=== PATIENT | female | born 1995 | race Caucasian/White ===

== ENCOUNTER 2021-01-24 20:59 | Emergency (ER) | payer OTHER, MEDICAID ==
--- NOTE | 2021-01-24 22:22 | EDM.PDOC ---
ED HPI GENERAL MEDICAL PROBLEM - General Chief Complaint: Genitourinary Problem Stated Complaint: BLADDER PAIN/BLOOD Time Seen by Provider: 01/24/21 21:49 Source of Information: Reports: Patient, RN History Limitations: Reports: No Limitations - History of Present Illness INITIAL COMMENTS - FREE TEXT/NARRATIVE: Chief complaint: bladder infection This is a 25 year old female presents to ER for bladder symptoms x 24 hours. has painful, frequent urination. denies fever, chills or back pain. Onset: Today Onset Date: 01/23/21 Duration: Hour(s): (24 hours), Getting Worse Location: Reports: Abdomen Quality: Reports: Burning, Same as Previous Episode, Sharp, Stabbing Severity: Moderate Improves with: Reports: None Worsens with: Reports: None Associated Symptoms: Reports: No Other Symptoms - Related Data Allergies Allergy/AdvReac Type Severity Reaction Status Date / Time Sulfa (Sulfonamide Allergy Rash Verified 01/24/21 21:32 Antibiotics) Home Meds: Home Meds NK [No Known Home Meds] 01/24/21 [History] Past Medical History Cardiovascular History: Reports: Arrhythmia [employer] History: Reports: Musculoskeletal History: Reports: Fracture - Infectious Disease History Infectious Disease History: Reports: Influenza, Novel Coronavirus Social & Family History - Tobacco Use Tobacco Use Status *Q: Never Tobacco User - Living Situation & Occupation Living situation: Reports: with Significant Other (Lives with family, has one child Son age 16 months.), with Family ED ROS GENERAL - Review of Systems Review Of Systems: See Below Constitutional: Reports: Other (painful urination x 24 hours) HEENT: Reports: No Symptoms Respiratory: Reports: No Symptoms Cardiovascular: Reports: No Symptoms Endocrine: Reports: No Symptoms GI/Abdominal: Reports: Abdominal Pain : Reports: Dysuria, Frequency, Pain, Urgency Musculoskeletal: Reports: No Symptoms Skin: Reports: No Symptoms Neurological: Reports: No Symptoms Psychiatric: Reports: No Symptoms Hematologic/Lymphatic: Reports: No Symptoms Immunologic: Reports: No Symptoms ED EXAM, GI/ABD - Physical Exam Exam: See Below Exam Limited By: No Limitations General Appearance: Alert, WD/WN, No Apparent Distress, Other (neat and well groomed. pleasant - no distress) Eyes: Bilateral: Normal Appearance, EOMI Neck: Normal Inspection Respiratory/Chest: No Respiratory Distress, Lungs Clear, Normal Breath Sounds, No Accessory Muscle Use, Chest Non-Tender Cardiovascular: Normal Peripheral Pulses, Regular Rate, Rhythm, No Edema, No Gallop, No JVD, No Murmur, No Rub GI/Abdominal Exam: Normal Bowel Sounds, Soft, Non-Tender, No Organomegaly, No Distention, No Abnormal Bruit, No Mass (Female) Exam: Deferred Rectal (Female) Exam: Deferred Back Exam: Normal Inspection, Full Range of Motion Extremities: Normal Inspection Neurological: Alert, Oriented, CN II-XII Intact, Normal Cognition, Normal Gait, Normal Reflexes, No Motor/Sensory Deficits Psychiatric: Normal Affect, Normal Mood Skin Exam: Warm, Dry, Intact, Normal Color, No Rash Lymphatic: No Adenopathy Course - Vital Signs Last Recorded V/S: Last Vital Signs Temp 98.2 F 01/24/21 21:36 Pulse 91 01/24/21 21:36 Resp 17 01/24/21 21:36 BP 126/84 01/24/21 21:36 Pulse Ox 97 01/24/21 21:36 - Orders/Labs/Meds Orders: Active Orders 24 hr Category Date Time Status CULTURE URINE [RM] Stat Lab 01/24/21 22:19 Received Labs: Laboratory Tests 01/24/21 Range/Units 21:33 Urine Color Yellow (YELLOW) Urine Appearance Cloudy A (CLEAR) Urine pH 7.0 (5.0-8.0) Ur Specific [place] 1.020 (1.008-1.030) Urine Protein 30 H (NEGATIVE) mg/dL Urine Glucose (UA) Negative (NEGATIVE) mg/dL Urine Ketones Negative (NEGATIVE) mg/dL Urine Occult Blood Moderate H (NEGATIVE) Urine Nitrite Negative (NEGATIVE) Urine Bilirubin Negative (NEGATIVE) Urine Urobilinogen 0.2 (0.2-1.0) EU/dL Ur Leukocyte Esterase Moderate H (NEGATIVE) Urine RBC Packed H (0-5) Urine WBC Packed H (0-5) Ur Epithelial Cells Few Amorphous Sediment Not seen Urine Bacteria Moderate Urine Mucus Not seen Departure - Departure Time of Disposition: 22:19 Disposition: Home, Self-Care 01 Condition: Good Clinical Impression: UTI, Urinary tract infectious disease - Discharge Information *PRESCRIPTION DRUG MONITORING PROGRAM REVIEWED*: Not Applicable *COPY OF PRESCRIPTION DRUG MONITORING REPORT IN PATIENT MIAN: Not Applicable Instructions: Urinary Tract Infection, Adult, [id number] Referrals: Zulma Colindres, RN, [employer] [Primary Care Provider] - Forms: ED Department Discharge Care Plan Goals: Urinary Tract Infection/ bladder infection -urine culture pending -start tonight- Cephalexin antibiotic take as directed til gone -start tonight- Pyrdium 200mg for bladder pain as directed. -push fluids -rest -return to ER if has increase pain, fever, chills, nausea, vomiting, rash or any concerns. Sepsis Event Note (ED) - Evaluation Sepsis Screening Result: No Definite Risk - Focused Exam Vital Signs: Vital Signs Temp Pulse Resp BP Pulse Ox 01/24/21 21:36 98.2 F 91 17 126/84 97 01/24/21 21:35 98.2 F 91 17 126/84 97 - Problem List & Annotations (1) UTI, Urinary tract infectious disease SNOMED Code(s): 02937649 Code(s): N39.0 - URINARY TRACT INFECTION, SITE NOT SPECIFIED Status: Acute Priority: High Current Visit: Yes - Problem List Review Problem List Initiated/Reviewed/Updated: Yes - My Orders Last 24 Hours: My Active Orders 01/24/21 22:19 CULTURE URINE [RM] Stat - Assessment/Plan Last 24 Hours: My Active Orders 01/24/21 22:19 CULTURE URINE [RM] Stat Plan: Urinary Tract Infection/ bladder infection -urine culture pending -start tonight- Cephalexin antibiotic take as directed til gone -start tonight- Pyrdium 200mg for bladder pain as directed. -push fluids -rest -return to ER if has increase pain, fever, chills, nausea, vomiting, rash or any concerns.
== END 2021-01-24 22:35 | disposition home or self-care (01) ==
LOC: JP.ED 20:59
DX: N39.0 Urinary tract infection, site not specified (principal); Z86.16 Personal history of COVID-19; Z88.2 Allergy status to sulfonamides
CPT/HCPCS: 81001; 87086; 99283